=== PATIENT | female | born 1965 | race Caucasian/White ===

== ENCOUNTER 2021-09-30 14:56 | Observation (INO) | payer BC, SELFPAY ==
[2021-09-30] VITALS (9 sets, daily range): BP systolic 143–216; BP diastolic 72–102; PULSE 66–77; RESP 16–20; TEMP 36.6–37.4; O2SAT 96–100; BMI 23.5
[2021-09-30 15:32] LABS: Add Manual Diff / Slide Review NO; Basophils Absolute Auto 0 /uL (0-100); Basophils Percent Auto 0.5 % (0-2); Eosinophils Absolute Auto 100 /uL (0-450); Eosinophils Percent Auto 1.2 % (2-4); Hematocrit 41.2 % (36-46); Lymphocytes Absolute Auto 1500 /uL (1100-4500); Lymphocytes Percent Auto 16.4 % (25-40); Mean Corpuscular Hemoglobin 28.8 PG (26-34); Mean Corpuscular Volume 84.6 fL (80-100); Monocytes Absolute Auto 900 /uL (0-900); Monocytes Percent Auto 9.9 % (3-14); Neutrophils Absolute Auto 6700 /uL (1500-7000); Platelet Count 247 X10^3/uL (150-400); Red Blood Cell Count 4.87 X10^6/uL (4.0-5.2); Red Cell Distribution Width 12.9 % (11.6-14.8); White Blood Cell Count 9.3 X10^3/uL (4.5-11.0)
[2021-09-30 15:42] LABS: Alanine Aminotransferase 25 IU/L (<35); Albumin 5.1 g/dL (3.5-5.0); Albumin Globulin Ratio 1.3 (1.0-2.8); Alkaline Phosphatase 67 U/L (38-126); BUN Creatinine Ratio 18.8 (6-22); Bilirubin Total 1.7 mg/dL (0.2-1.3); Blood Urea Nitrogen 12 mg/dL (7-17); Carbon Dioxide 30 mmol/L (22-32); Chloride 103 mmol/L (98-107); Estimated Glomerular Filt Rate > 60.0 mL/min (>60); Globulin 3.9 g/dL (1.7-4.1); Glucose 95 mg/dL (70-100); HEMOLYSIS 129 (0-50); Lipase 117 U/L (23-300); Sodium 140 mmol/L (137-145)
[2021-09-30 15:45] LABS: Aspartate Aminotransferase 45 IU/L (14-36); Potassium 4.8 mmol/L (3.4-5.1)
--- NOTE | 2021-09-30 15:53 | ED_ITS ---
HPI - Abdominal Pain General Chief Complaint: Abdominal Pain Stated Complaint: Appe, Sent by [facility] Time Seen by Provider: 09/30/21 15:41 Source: patient Mode of arrival: Ambulatory Limitations: no limitations History of Present Illness HPI narrative: This is a 56-year-old female comes with complaint of abdominal pain for a week which she describes as her stomach burning. For the last day or 2 she started to have some right lower quadrant discomfort. Does not really radiate to her back. She has not had any fevers or chills. No nausea or vomiting. The pain just has not resolved in the right lower quadrant pain is been slowly worsening patient denies any dysuria, urgency or frequency. No vaginal bleeding or discharge. No diarrhea constipation. She denies any significant back or flank pain. She takes hypothyroid medication but no other daily meds. She denies any major surgeries she still has her gallbladder and her appendix. No tobacco, rare alcohol, no illicit. She is accompanied by her . She was seen at urgent care who sent her here for further evaluation for potential appendicitis. She defers any medications for pain at this time. Related Data Home Medications Medication Instructions Recorded Confirmed levothyroxine 100 mcg tablet 100 mcg PO DAILY 09/30/21 09/30/21 (Synthroid) vitamin B complex (B 1 tab PO DAILY 09/30/21 09/30/21 Complex-Vitamin B12) Allergies Allergy/AdvReac Type Severity Reaction Status Date / Time acetaminophen [From Vicodin] Allergy Verified 09/30/21 17:40 hydrocodone [From Vicodin] Allergy Verified 09/30/21 17:40 tetracycline Allergy Verified 09/30/21 17:40 Review of Systems Review of Systems ROS Unobtainable: All systems reviewed & are unremarkable except as noted in HPI and below Patient History Social History Smoking Status: Never smoker Smoking Status: Never smoker Exam Narrative Exam Narrative: GENERAL: Alert and oriented x three, female in mild distress. HEENT: Head normocephalic, atraumatic, EOMI, pupils reactive, face symmetric, moist mucous membranes NECK: Supple, full range of motion CARDIOVASCULAR: Regular rate and rhythm without murmurs, rubs or gallops. RESPIRATORY: Breath sounds equal bilaterally, no wheezes rales or rhonchi. ABDOMEN: Soft, positive for or right lower quadrant tenderness. Patient is also tender on the right when palpated on the left. Although she has some slight discomfort on the left side as well. Normoactive bowel sounds all 4 quadrants. No guarding or rebound, rigidity, no mass : No CVA tenderness EXTREMITIES: Normal range of motion, no clubbing or edema. Neurovascularly intact NEUROLOGICAL: Cranial nerves II through XII grossly intact. Moving all extremities SKIN: Warm, dry, no petechiae, no rashes or lesions. Initial Vital Signs Initial Vital Signs: Vital Signs Temperature 97.9 F 09/30/21 15:02 Pulse Rate 66 09/30/21 15:02 Respiratory Rate 18 09/30/21 15:02 Blood Pressure 207/96 H 09/30/21 15:02 Pulse Oximetry 100 09/30/21 15:02 Course Orders Ordered: ED Orders 09/30/21 15:13 Complete Blood Count AUTO DIFF Stat Comprehensive Metabolic Panel Stat Lipase Stat 09/30/21 16:20 CT abdomen pelvis w con Stat Lactated Ringer's (Lactated Ringers) 1,000 mls @ 125 mls/hr IV CONT RICCARDO Last Admin: 09/30/21 18:08 Dose: 125 mls/hr Documented by: BELEM Piperacillin Sod/Tazobactam (Sod 3.375 gm/ Sodium Chloride) 100 mls @ 25 mls/hr IV Q8H RICCARDO Morphine Sulfate (Morphine 2 Mg/Ml Inj) 2 mg IV Q4HR PRN PRN Reason: Pain, Moderate (4-6) Ondansetron HCl (Ondansetron 4 Mg/2 Ml Inj) 4 mg IV Q6HR RICCARDO Last Admin: 09/30/21 18:40 Dose: Not Given Documented by: CARL Discontinued Medications Piperacillin Sod/Tazobactam (Sod 4.5 gm/ Sodium Chloride) 100 mls @ 200 mls/hr IV NOW ONE Stop: 09/30/21 17:12 Last Infusion: 09/30/21 18:01 Dose: 200 mls/hr Documented by: Admin: 09/30/21 17:36 Dose: 200 mls/hr Documented by: [email or web address] Sodium Chloride (Normal Saline 0.9%) 1,000 mls @ 150 mls/hr IV CONT RICCARDO Lorazepam (Lorazepam 0.5 Mg Tablet) 0.5 mg PO NOW ONE Stop: 09/30/21 17:27 Last Admin: 09/30/21 17:36 Dose: 0.5 mg Documented by: NATHANIEL Reevaluation(s) Reevaluation #1: Patient continues defer any medication for pain. She is somewhat hypertensive but also very anxious about her stay overnight. Offered an oral medication for anxiety but if she continues to be hypertensive we discussed she may need to be placed on something. She does not have a known history of hypertension. Discussed general surgeon's recommendations plan for surgery in the morning. All questions answered. No other concerns at this time. Consultations Consultation #1: Dr. Obrien, requests bridging orders. Plan for Zosyn, LR, NPO after midnight. Morphine for pain control Zofran as needed. Admit to the General surgery surgeries. Likely Dr. Swift will be the 1 seeing her tomorrow for likely OR. Vital Signs Vital signs: Vital Signs - 8 hr 09/30/21 15:02 Temperature 97.9 F Pulse Rate 66 Respiratory Rate 18 Blood Pressure 207/96 H Pulse Oximetry 100 MDM - Abdominal Pain Lab Data Result diagrams: 09/30/21 15:13 09/30/21 15:13 Labs: Lab Results 09/30/21 09/30/21 09/30/21 Range/Units 15:13 15:13 17:15 WBC 9.3 (4.5-11.0) X10^3/uL RBC 4.87 (4.0-5.2) X10^6/uL Hgb 14.0 (12.0-16.0) g/dL Hct 41.2 (36-46) % MCV 84.6 (80-100) fL MCH 28.8 (26-34) PG MCHC 34.0 (30-36) % RDW 12.9 (11.6-14.8) % Plt Count 247 (150-400) X10^3/uL Neut % (Auto) 72.0 (50-75) % Lymph % (Auto) 16.4 L (25-40) % [place] % (Auto) 9.9 (3-14) % Eos % (Auto) 1.2 L (2-4) % Baso % (Auto) 0.5 (0-2) % Neut # (Auto) 6700 (2957-3140) /uL Lymph # (Auto) 1500 (7499-5478) /uL [place] # (Auto) 900 (0-900) /uL Eos # (Auto) 100 (0-450) /uL Baso # (Auto) 0 (0-100) /uL Sodium 140 (137-145) mmol/L Potassium 4.8 (3.4-5.1) mmol/L Chloride 103 (98-107) mmol/L Carbon Dioxide 30 (22-32) mmol/L BUN 12 (7-17) mg/dL Creatinine 0.64 (0.52-1.04) mg/dL Estimated GFR > 60.0 (>60) mL/min BUN/Creatinine Ratio 18.8 (6-22) Glucose 95 (70-100) mg/dL Calcium 10.0 (8.4-10.2) mg/dL Total Bilirubin 1.7 H (0.2-1.3) mg/dL AST 45 H (14-36) IU/L ALT 25 (<35) IU/L Alkaline Phosphatase 67 (38-126) U/L Total Protein 9.0 H (6.3-8.2) g/dL Albumin 5.1 H (3.5-5.0) g/dL Globulin 3.9 (1.7-4.1) g/dL Albumin/Globulin Ratio 1.3 (1.0-2.8) Lipase 117 (23-300) U/L SARS-CoV-2 (PCR) Negative (Negative) Point of care testing: Urine Dip Bedside Urine Glucose Negative Bedside Urine Bilirubin - Negative Bedside Urine Ketone +/- 5 Urine Specific [place] 1.015 Bedside Urine Occult Blood +/- Bedside Urine pH 6.0 Bedside Urine Protein - Negative Bedside Urine Urobilinogen - Negative Bedside Urine Nitrite - Negative Imaging Data CT scan - abdomen/pelvis: Radiologist's Impression: [address] [address] [address] Scan Report Signed Patient: Pricila Flores MR#: [id number] : 1965 Acct:[id number] Age/Sex: 56 / F Date of Service: 09/30/21 Loc: ED Accession Number: [id number] ?? Procedure: CT abdomen pelvis w con Ordering Provider: Yaritza Mckinnon D.O. PROCEDURE:? CT ABDOMEN PELVIS W CON ? INDICATIONS:? abd pain x 1 week, RLQ, worse w/ L palp also, ? appy ? TECHNIQUE:? After the administration of intravenous contrast, axial sections acquired from the lung bases to the pubic symphysis.? Coronal and sagittal reformats were performed.? For radiation dose reduction, the following was used:? automated exposure control, adjustment of mA and/or kV according to patient size.? ? COMPARISON:? None. ? FINDINGS:? Image quality:? Excellent.? ? Lung bases:? Unremarkable. Heart:? No significant findings. ? ABDOMEN: Liver:? A few subcentimeter hypodensities too small to further characterize but statistically represent simple cysts. Gallbladder:? Unremarkable Biliary ducts:? Nondilated.? ? Pancreas:? Unremarkable.? ? Spleen:? Unremarkable.? ? Adrenal Glands:? Unremarkable.? ? Kidneys and Ureters:? Subcentimeter hypodensity within the left kidney too small to further characterize but statistically represents a simple cyst.? No suspicious mass.? No hydronephrosis.? Ureters are normal in course and caliber. ? Stomach and Bowel:? Stomach and small bowel are unremarkable.? No evidence of obstruction.? The terminal ileum demonstrates increased mucosal enhancement, likely secondary from the adjacent appendix which is enlarged and fluid-filled with a punctate appendicolith in noted.? There is adjacent inflammation and a small amount of fluid.? The appendix measures up to 1.1 cm in transverse diameter.? No free air.? Colon demonstrates a moderate stool burden.? No wall thickening or surrounding inflammation. Peritoneum:? No abnormal intraperitoneal fluid.? No free air.? ? Ventral Wall: ? Small fat containing periumbilical hernia. Abdominal Nodes:? No retroperitoneal or mesenteric adenopathy by size criteria.? Vessels:? Aorta and inferior vena cava are normal in size.? ? PELVIS: Pelvic Organs:? Unremarkable.? ? Bladder:? Unremarkable.? ? Pelvic Nodes: No enlarged lymph nodes.? Miscellaneous:? Small fat containing inguinal hernias. ? Bones:? No acute osseous abnormality or aggressive appearing osseous lesion. ? ? IMPRESSION:? ? Findings most consistent with acute appendicitis.? There is adjacent inflammation and small amount of fluid without peripheral rim enhancing fluid collection to suggest abscess.? No pneumoperitoneum.? There is increased enhancement and wall thickening of the terminal ileum which is likely reactive. ? ? Dictated by: Avery Irving D.O. on 09/30/2021 at 15:59 ? ? Approved by: Avery Irving D.O. on 09/30/2021 at 16:04?? [facility] Narrative Medical decision making narrative: This is a 56-year-old female who comes to the emergency department approximately a week of abdominal pain that has now localized to right lower quadrant. She is tender on exam bilaterally but has increased right lower quadrant pain with left palpation as well. Exam findings are concerning for appendicitis. CT does show appendicitis with appendicoliths, some inflammation of the terminal ileum, there is a small amount of fluid collection but no obvious abscess. This was discussed with General surgery who plans for likely OR in the morning, and for Zosyn, fluids, pain control. Discharge Plan Departure Patient Disposition: Admitted as Observation Clinical Impression: Acute appendicitis Admit Date/Time: 09/30/21 17:16 Admit Provider: Tin Obrien
--- NOTE | 2021-09-30 16:20 | DI.CT.S_ITS ---
PROCEDURE: CT ABDOMEN PELVIS W CON INDICATIONS: abd pain x 1 week, RLQ, worse w/ L palp also, ? appy TECHNIQUE: After the administration of intravenous contrast, axial sections acquired from the lung bases to the pubic symphysis. Coronal and sagittal reformats were performed. For radiation dose reduction, the following was used: automated exposure control, adjustment of mA and/or kV according to patient size. COMPARISON: None. FINDINGS: Image quality: Excellent. Lung bases: Unremarkable. Heart: No significant findings. ABDOMEN: Liver: A few subcentimeter hypodensities too small to further characterize but statistically represent simple cysts. Gallbladder: Unremarkable Biliary ducts: Nondilated. Pancreas: Unremarkable. Spleen: Unremarkable. Adrenal Glands: Unremarkable. Kidneys and Ureters: Subcentimeter hypodensity within the left kidney too small to further characterize but statistically represents a simple cyst. No suspicious mass. No hydronephrosis. Ureters are normal in course and caliber. Stomach and Bowel: Stomach and small bowel are unremarkable. No evidence of obstruction. The terminal ileum demonstrates increased mucosal enhancement, likely secondary from the adjacent appendix which is enlarged and fluid-filled with a punctate appendicolith in noted. There is adjacent inflammation and a small amount of fluid. The appendix measures up to 1.1 cm in transverse diameter. No free air. Colon demonstrates a moderate stool burden. No wall thickening or surrounding inflammation. Peritoneum: No abnormal intraperitoneal fluid. No free air. Ventral Wall: Small fat containing periumbilical hernia. Abdominal Nodes: No retroperitoneal or mesenteric adenopathy by size criteria. Vessels: Aorta and inferior vena cava are normal in size. PELVIS: Pelvic Organs: Unremarkable. Bladder: Unremarkable. Pelvic Nodes: No enlarged lymph nodes. Miscellaneous: Small fat containing inguinal hernias. Bones: No acute osseous abnormality or aggressive appearing osseous lesion. IMPRESSION: Findings most consistent with acute appendicitis. There is adjacent inflammation and small amount of fluid without peripheral rim enhancing fluid collection to suggest abscess. No pneumoperitoneum. There is increased enhancement and wall thickening of the terminal ileum which is likely reactive. Dictated by: Avery Irving D.O. on 09/30/2021 at 15:59 Approved by: Avery Irving D.O. on 09/30/2021 at 16:04
[2021-09-30] MEDS: PIPERACILLIN/TAZO 4.5 GM in SODIUM CHLORIDE 0.9% 100 ML 200 ML IV (17:36)
[2021-09-30] MEDS: LORazepam 0.5 MG TABLET PO (17:36)
--- NOTE | 2021-09-30 17:58 | PC.NURSE ---
Day shift: Pt on unit from ED at approx 1750. SHe is A&Ox4 and steady on feet. BP 165/102. RA 99%. Denies any chest pain or nausea. Reports ABD 11/29. Only ED orders for Pt at this time. Oriented to room and call light. Pt's spouse in room for support. Call light in reach. Pt did void in BR when she came to the AC unit.
[2021-09-30] MEDS: LACTATED RINGERS 1,000 ML 125 ML IV (18:08)
[2021-09-30 18:45] LABS: COVID19 - ADMIT (NP swab/PCR) Negative (Negative)
[2021-09-30] MEDS: MORPHINE 2 MG/ML INJ IV (22:49)
[2021-09-30] MEDS: PIPERACILLIN/TAZO 3.375 GM in SODIUM CHLORIDE 0.9% 100 ML 25 ML IV (22:49)
[2021-09-30] MEDS: ACETAMINOPHEN 325 MG TABLET 650 MG PO (23:34)
[2021-10-01] VITALS (18 sets, daily range): BP systolic 128–155; BP diastolic 68–99; PULSE 63–82; RESP 14–20; TEMP 35.8–37.7; O2SAT 92–99; BMI 23.5
--- NOTE | 2021-10-01 | PATH_ITS ---
[facility] Accession Number: [id number] . 01 Material submitted: . appendix - APPENDIX . 02 Diagnosis: Appendix, Appendectomy: Marked acute appendicitis with serositis. No evidence of neoplasm. MRV 10/03/2021 1447 Local . 02 Electronically signed: . Paul Proctor MD, PhD, Pathologist NPI- [id number] . 01 Gross description: . The specimen is received in formalin, labeled with the patient's name and appendix, is composed of a slightly convoluted and adhesed appendix measuring 6.5 x 2.5 x 1.5 cm. The serosal surface is islas-white to islas-pink, hemorrhagic and shows fibrinous adhesions. The appendix is folded on itself and is adhesed. The appendiceal margin is inked blue and a cross section is submitted en face. Serial sectioning reveals a lumen which shows focal dilation and is filled with red-brown hemorrhagic material. The lumen is dilated up to 0.6 cm. A definite rupture is not identified. No solid masses or lesions identified within the lumen. Insurance Agent sections are submitted. . A1: En face margin. A2: Insurance Agent sections of the appendix with the dilated lumen showing the hemorrhagic material. ([id number]) /MRV 10/02/2021 1354 Local . 02 Pathologist provided ICD-10: K35.80 . 02 CPT . 281769 Performed at: 01 [facility] [address], [place], [place] [id number] MD Homero Arce MD Phone: [phone] Performed at: [address] [facility] [address] [place], [place] [id number] MD Nataly Dominguez MD Phone: [phone]
[2021-10-01] MEDS: LACTATED RINGERS 1,000 ML 125 ML IV ×4 (02:04→21:45)
[2021-10-01] MEDS: PIPERACILLIN/TAZO 3.375 GM in SODIUM CHLORIDE 0.9% 100 ML 25 ML IV ×3 (06:38→23:11)
[2021-10-01] MEDS: MORPHINE 2 MG/ML INJ IV ×2 (06:43→17:00)
[2021-10-01] MEDS: ONDANSETRON 4 MG/2 ML INJ IV ×3 (06:43→20:20)
[2021-10-01] MEDS: ACETAMINOPHEN 325 MG TABLET 650 MG PO ×2 (07:31→20:22)
[2021-10-01] MEDS: SODIUM CHLORIDE 0.9% FLUSH 10 ML IV ×2 (09:44→20:17)
--- NOTE | 2021-10-01 11:06 | CM.DANOTE ---
DCP: Case received, EMR reviewed and met with patient. , Steven, was also at bedside. Introduced self and role. Was able to obtain information regarding patient's baseline activity status prior to hospitalization. DCP assessment completed with information currently available. Patient is a 56 year old female who admitted yesterday afternoon to the care of the hospitalist team. PCP: Dr. Grijalva. Payer: confirmed: [facility] Patient came to the hospital via private vehicle sent over from [facility] office. Patient had been seen for abdominal pain, holds current diagnosis of acute appendicitis. She will be getting a surgeon consult today. Met with patient in her room. , Steven, was at bedside. Confirmed that her and spouse reside in [facility]. She is employed at [employer], with the [employer], and is independent at her baseline. P: DCP to continue to follow. Patient should be able to go home when she is deemed medically stable. Bety Katz RN/Retail Administrative Assistant Discharge Planning/Care Management CM Discharge Assessment Start: 10/01/21 11:01 Freq: Status: Active Protocol: Document 10/01/21 11:02 (Rec: 10/01/21 11:06 [id number]) Discharge Planning Assessment Assigned [place] Bety Katz RN/Retail Administrative Assistant Advance Directives? No History Provided By Patient,Medical Record Prior Living Arrangements House Household Members spouse Type of transporation used prior to Drives own vehicle admit Independent with ADL's Yes Is patient alert and oriented? Yes Caregiver for Another No Barriers to Discharge No Discharge Plan Home Transportation Arrangement Spouse Referrals Initiated None needed Whiteboard Updated in Patient Room with Yes name and ext. # of [place] Review Status In Process Next Review Type Continued Stay Review
--- NOTE | 2021-10-01 13:27 | PC.NURSE ---
1325 pt transported by OR staff via bed off of unit.
[2021-10-01] MEDS: LACTATED RINGERS 1,000 ML 42 ML IV (13:52)
--- NOTE | 2021-10-01 14:14 | P.HP_ITS ---
History of Present Illness History of Present Illness Date Patient Seen: 10/01/21 Time Patient Seen: 14:14 Date of Onset of Symptoms: 08/31/21 Chief complaint: Appe, Sent by [facility] Narrative: One month of abdominal pain w sudden worsening and focal mid abdomen pain. CT scan at [facility] and referred over here. Acute appendicitis with constipation on CT to my reading. Can not r/o contained perforation. Has had a normal screening colonoscopy, thyroid disease and a broken arm are her remaining medical histories. Patient History Family & Social History Social History: household members spouse Prior Living Arrangements House Tobacco & Substance use: Smoking Status Never smoker alcohol intake current alcohol intake frequency a few times a week Substance Use Type does not use Meds Home Medications and Allergies Home Medications Medication Instructions Recorded Confirmed Type levothyroxine 100 mcg tablet 100 mcg PO DAILY 09/30/21 09/30/21 History (Synthroid) vitamin B complex (B 1 tab PO DAILY 09/30/21 09/30/21 History Complex-Vitamin B12) Allergies Allergy/AdvReac Type Severity Reaction Status Date / Time hydrocodone [From Vicodin] Allergy Verified 10/01/21 13:37 tetracycline Allergy Verified 10/01/21 13:37 tramadol AdvReac Intermediate Difficulty Verified 10/01/21 13:37 Breathing Review of Systems Review of Systems ROS: Yes All systems reviewed with the patient and are negative except as otherwise documented Exam Vital Signs (past 8 hours): - 10/01/21 07:31 10/01/21 07:35 10/01/21 13:03 Temperature 99.8 F H 98.8 F 98.7 F Pulse Rate 65 66 Respiratory Rate 16 16 Blood Pressure 136/92 H 130/84 Pulse Oximetry 97 97 10/01/21 13:41 Temperature 98.7 F Pulse Rate 76 Respiratory Rate 15 Blood Pressure 155/91 H Pulse Oximetry 97 Oxygen Delivery Method Room Air Oxygen Flow Rate 0 Const General: cooperative and comfortable HENMT Head: normal to inspection Eyes Sclera: sclerae normal Neck Neck: trachea midline Chest Chest: normal inspection of the chest Resp Effort & Inspection: normal respiratory effort and able to speak in complete sentences Auscultation: clear to auscultation bilaterally Cardio Rate: regular rate Rhythm: regular rhythm GI Palpation: soft Other: periumbilical tenderness. Skin General: elasticity normal and turgor normal Neuro General: patient alert and patient oriented x3 Speech: speech normal Extrem General: no pedal edema Psych Appearance: grossly normal Attitude: cooperative Judgment: judgment good Objective Labs Result Diagrams: 09/30/21 15:13 09/30/21 15:13 Labs: Laboratory Results - last 24 hr 09/30/21 09/30/21 09/30/21 15:13 15:13 17:15 WBC 9.3 RBC 4.87 Hgb 14.0 Hct 41.2 MCV 84.6 MCH 28.8 MCHC 34.0 RDW 12.9 Plt Count 247 Neut % (Auto) 72.0 Lymph % (Auto) 16.4 L [place] % (Auto) 9.9 Eos % (Auto) 1.2 L Baso % (Auto) 0.5 Neut # (Auto) 6700 Lymph # (Auto) 1500 [place] # (Auto) 900 Eos # (Auto) 100 Baso # (Auto) 0 Sodium 140 Potassium 4.8 Chloride 103 Carbon Dioxide 30 BUN 12 Creatinine 0.64 Estimated GFR > 60.0 BUN/Creatinine Ratio 18.8 Glucose 95 Calcium 10.0 Total Bilirubin 1.7 H AST 45 H ALT 25 Alkaline Phosphatase 67 Total Protein 9.0 H Albumin 5.1 H Globulin 3.9 Albumin/Globulin Ratio 1.3 Lipase 117 SARS-CoV-2 (PCR) Negative Assessment & Plan Assessment & Plan narrative: acute appendicitis, possible ruptured Plan: byron appy COVID-19 COVID-19 status: Negative Result date/Date tested (Pos, Neg/Pending): 09/30/21 Time Spent With Patient Time with patient: 30 to 49 minutes with 50% spent counseling/coordinating care Critical Care time: I spent a total of [] minutes of critical care time on this patient's care today; this time is exclusive of procedural time.
--- NOTE | 2021-10-01 15:10 | SUR.OPER ---
Supine on padded OR bed, head on pillow, left arm padded and tucked at side, right arm <90 degrees on padded arm board, legs uncrossed, safety belt at thigh, tape over blanket over lower legs .
[2021-10-01] MEDS: BUPIVACAINE 0.25% (PF) 30 ML, EPINEPHrine 0.15 MG INJ (15:41)
--- NOTE | 2021-10-01 15:54 | P.OP_ITS ---
Operative Date/Time/Diagnoses Date of procedure: 10/01/21 Time of procedure: 15:54 Pre-op diagnosis: acute appendicitis Post-op diagnosis: other (ruptured appendicitis with abscess) Procedure & Clinicians Procedure: Laparoscopic appendectomy Same procedure as scheduled: Yes Indications: Ruptured appendicitis Surgeon: Jennifer Swift Click Yes if Unassisted: Yes Anesthesia Type: General Operative Notes Findings: Ruptured appendicitis with associated abscess consistent with the 4 week history Closure Type: primary Specimen(s): other (Appendix) Applied: drain(s) (15 Óscar drain) Estimated Blood Loss (mL): 15 Blood products transfused: none Procedure in detail: Preop diagnosis: Acute appendicitis Postop diagnosis: Ruptured appendicitis with associated abscess Procedure: Laparoscopic appendectomy Surgeon: Mei Swift MD Anesthetic: General with ET tube Findings: Ruptured appendicitis with associated abscess Procedure: Patient is placed in a supine position. Prepped and draped in sterile fashion to expose her abdomen. Infraumbilical port site was placed using an open technique and a 12 mm port. Insufflation began and a suprapubic 5 mm port along with the left lower lateral abdominal 5 mm port replaced with direct vision. The appendix was adherent to the right fallopian tube. This was bluntly dissected free. There was clear chronic/subacute edema and distortion. A small 1 cm abscess at what appeared to be the tip of the appendix. The appendix was teased from the surrounding [place] induration, base was cleared and a MIRYAM stapling device was used to amputate the appendix. Appendix was then placed into a Endo-Catch bag and pulled through the infraumbilical port site intact. I placed a drain in the operative site looking down into the pelvis after having suction and irrigated to a clear return. There was a small spillage of pus into the abdomen during the procedure. Drain was sutured to the anterior abdominal wall with 3-0 nylon. We then removed all ports and began closure. Closure consisted of interrupted 0 Vicryl for fascial closure of the infraumbilical port site. Skin was closed a running 4-0 Vicryl. Steri-Strips and sterile dressings were placed. Patient was awakened, extubated, taken to recovery room in stable condition. Needle, instrument, sponge counts were correct. Blood loss: 15 cc Specimen: Appendix Complications: none Post-operative Condition: stable Disposition: PACU
[2021-10-01] MEDS: fentaNYL 100 MCG/2 ML INJ IV ×2 (16:02→16:26)
[2021-10-02] MEDS: IBUPROFEN 600 MG TABLET PO (01:00)
[2021-10-02] MEDS: ACETAMINOPHEN 325 MG TABLET 650 MG PO (03:19)
[2021-10-02 05:00] VITALS: BP 136/85; PULSE 77; RESP 18; TEMP 37; O2SAT 97
[2021-10-02] MEDS: LEVOTHYROXINE 100 MCG TABLET PO ×2 (05:54→05:58)
[2021-10-02] MEDS: MORPHINE 2 MG/ML INJ IV (05:55)
[2021-10-02] MEDS: ONDANSETRON 4 MG/2 ML INJ IV (05:55)
[2021-10-02] MEDS: LACTATED RINGERS 1,000 ML 125 ML IV (06:00)
[2021-10-02] MEDS: PIPERACILLIN/TAZO 3.375 GM in SODIUM CHLORIDE 0.9% 100 ML 25 ML IV (07:18)
[2021-10-02 08:00] VITALS: BP 149/88; PULSE 59; RESP 16; TEMP 36.9; O2SAT 99
--- NOTE | 2021-10-02 11:08 | PM.DS.1 ---
History of Present Illness History of Present Illness Date Patient Seen: 10/02/21 Time Patient Seen: 11:08 Chief complaint: Appe, Sent by [facility] Narrative: One month of abdominal pain w sudden worsening and focal mid abdomen pain. CT scan at [facility] and referred over here. Acute appendicitis with constipation on CT to my reading. Can not r/o contained perforation. Has had a normal screening colonoscopy, thyroid disease and a broken arm are her remaining medical histories. Discharge Providers Provider Date of admission: 09/30/21 17:16 Discharge Date: 10/02/21 Primary care physician: Yaritza Grijalva DO Discharge provider: Jennifer Swift MD Summary Hospital Course Discharge Diagnosis: ruptured appendicitis with associate abscess Hospital Course: Lap appy Status at Discharge Cognitive/behavioral status at discharge: oriented Functional status at discharge: independent ambulation Overall status at discharge: patient is progressing back to baseline Time Spent with Patient Time spent: Less than 30 minutes Exam Vital Signs (past 8 hours): - 10/02/21 05:00 10/02/21 08:00 Temperature 98.6 F 98.4 F Pulse Rate 77 59 L Respiratory Rate 18 16 Blood Pressure 136/85 149/88 H Pulse Oximetry 97 99 Oxygen Delivery Method Room Air Oxygen Flow Rate 0 Narrative Exam Narrative: abdomen is soft wounds are appropriate. Drain can be removed Objective Labs Result Diagrams: 09/30/21 15:13 09/30/21 15:13 [facility] Social History household members: spouse Smoking Status: Never smoker alcohol intake: current Discharge Assessment & Plan Assessment and Plan Assessment: ruptured appendicitis, S/P lap appy Plan of Treatment: Discharge home, no further antibiotics. Follow up 1- 2 weeks Discharge Plan Discharge Plan Patient Disposition: Home Discharge orders & Medications Prescriptions: New hydromorphone 2 mg Tablet 2 mg PO Q4HR PRN (Reason: Pain, Severe (7-10)) Qty: 10 0RF Continued levothyroxine [Synthroid] 100 mcg tablet 100 mcg PO DAILY 0RF vitamin B complex [B Complex-Vitamin B12] Tablet 1 tab PO DAILY 0RF Follow up/Referrals: Yaritza Grijalva DO [Primary Care Provider] - Diet/Activity/Treatments Diet: Diet as Tolerated Activity: no heavy lifting greater than 15 lbs for 4 weeks Visit Report/Discharge Packet Instructions: Appendicitis: What You Need to Know, DI for an Appendectomy, Appendicostomy Stand Alone Forms: Surgery Discharge Discharge Data Primary Care Provider: Yaritza Grijalva Attending Provider: Tin Obrien
--- NOTE | 2021-10-02 13:46 | PC.NURSE ---
Pt A&Ox3, VSS, afebrile on RA. LS CTA. She reports abdominal tenderness 4/10 but requesting to eat first and ambulate in the apntoja prior to prn pain medications I think I have gas pain. Abdomen with lap sites minimal bloody drainage (scant) dry and intact. Jordy drain with 50 cc serosanguianeous out put. Saline locked IV after tolerating a large regular breakfast this am. Her spouse is at bedside supportive. MD Swift arrived to bedside clearing patient for discharge home. Received orders to d/c jordy drain. Suture removed and drain removed intact. Reviewed discharge instructions with patient and spouse. She verbalized understanding of medications, activty, site care, worsening symptoms or signs and symptoms of infection and activity as well as follow up appointments. She is escorted by w/ch to private vehicle with her spouse shortly after lunch with all of her belongings.
== END 2021-10-02 12:30 | disposition home or self-care (01) ==
LOC: ED 17:13 → AC 17:17
PROVIDERS: Surgery; Admitting Provider Surgery; Emergency Provider Emergency Medicine; PCP Family Medicine; Referring Provider Emergency Medicine; Visit Provider Surgery
PROC: 0DTJ4ZZ Resection of Appendix, Percutaneous Endoscopic Approach (ICD-10-PCS; CPT 44970; principal; 2021-10-01 14:45)
DX: K35.33 Acute appendicitis with perforation, localized peritonitis, and gangrene, with abscess (principal); E03.9 Hypothyroidism, unspecified; Z20.822 Contact with and (suspected) exposure to COVID-19
CPT/HCPCS: 44970; 74177; 80053; 81003; 83690; 85025; 87635; 93005; 93010; 96361; 96365; 96366; 96375; 99220; 99284; C9803; G0378; J0171; J1100; J1885; J2270; J2405; J2543; J2704; J3010; Q9967